=== PATIENT | female | born 1950 | race Caucasian/White ===

== ENCOUNTER 2018-08-24 10:55 | Day surgery (SDC) | payer OTHER, SELFPAY ==
--- NOTE | 2018-08-23 16:45 | POEE_ITS ---
History of Present Illness Chief Complaint: Progressive decreased vision, right eye Narrative: The patient is a 67-year old female who has previously undergone laser vision correction with monovision, right eye near, left eye distance. She presented with complaints of progressive blurred vision in both eyes at both distance and near. On examination she was noted to have significant nuclear cataract of the right eye with best corrected vision of 20/70. The option of cataract surgery was offered to the patient and she wished to proceed. In addition, she desired to have her currently myopic right eye corrected for best distance vision. NOTE: The Chief Complaint, HPI, Past Medical History, Past Surgical History, Family History, Social History, Medications, and complete Ophthalmic Exam with detailed Assessment and Plan have already been documented in the patient's outpatient ophthalmic record and are not covered again in detail here. PFSH Nuclear sclerotic cataract of right eye (Acute) Myopia of right eye (Chronic) Medical History Nuclear sclerotic cataract of right eye (Acute) Myopia of right eye (Chronic) Social History Smoking/Tobacco Use Status: Never Social History Smoking/Tobacco Use Status: Never Meds Home Medications Medication Instructions Recorded Confirmed Type aspirin [Aspir-Low] 81 mg PO DAILY 08/20/18 08/20/18 History atorvastatin 10 mg PO DAILY 08/20/18 08/20/18 History coenzyme Q10 [CoQ-10] 400 mg PO DAILY 08/20/18 08/20/18 History flaxseed oil 1,000 mg PO DAILY 08/20/18 08/20/18 History hydrochlorothiazide 25 mg PO DAILY 08/20/18 08/20/18 History ibuprofen 4 tab PO TID PRN PRN 08/20/18 08/20/18 History nitroglycerin [Nitrostat] 0.4 mg SUBLINGUAL ONCE 08/20/18 08/20/18 History omega 7-eia-dhu-fish oil [Fish Oil] 1,000 mg PO DAILY 08/20/18 08/20/18 History omeprazole 20 mg PO BID 08/20/18 08/20/18 History Allergies Allergy/AdvReac Type Severity Reaction Status Date / Time Penicillins Allergy Verified 08/20/18 13:48 Sulfa (Sulfonamide Allergy Verified 08/20/18 13:48 Antibiotics) Exam OCULAR EXAM:: Most recent ocular examination revealed a best corrected vision of 20/70 in the right eye, 20/30 in the left eye. Pupils equal, round, and reactive without afferent pupillary defect. Intraocular pressure is 18 OD, 20 OS. Extraocular motility is normal. Slit-lamp examination reveals a 3+ nuclear cataract OD, 1+ nuclear cataract OS. Dilated funduscopic examination shows disc cupping of 0.35 OU with good color. The vessels and macula are normal OU as is the vitreous. 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 BRIGHTNESS ACUITY TESTING (BAT):: Brightness acuity testing of the right eye off is 20/70. Low is 20/200, medium and high is 20/400. Assessment and Plan (1) Nuclear sclerotic cataract of right eye: Current visit: No Status: Acute Assessment: Visually significant cataract, right eye. Plan: Cataract extraction with intraocular lens implantation, right eye (2) Myopia of right eye: Current visit: No Status: Chronic Assessment: Myopia of the right eye, status post laser vision correction, with monovision, right eye for near. Plan: Patient desires emmetropia following cataract surgery (3) S/P LASIK surgery of both eyes: Current visit: No Status: Chronic Assessment: Status post laser vision correction OU, monovision with right eye near, left eye distance Plan: Cataract surgery of the right eye with a target refraction of emmetropia per patient desires. Note: NOTE:: The details of the planned surgery, including the risks, indications, limitations,expectations,outcome and possible complications were explained to the patient. The patient understands the complications including, but not limited to: infection, hemorrhage, posterior dislocation of the lens or nuclear fragments which may require the intervention of a vitreoretinal surgeon, possible loss of the eye, or from anesthetic complications. The patient has been made aware of the option of not having surgery, that vision following surgery may not be equal to that prior to surgery, and that the planned surgery may not achieve the intended results. Following this discussion, which the patient appeared to understand, the patient wishes to proceed with cataract surgery with lens implantation of the affected eye to improve and maximize vision.
[2018-08-24] MEDS: Tropicam./Phenyleph. (1/2.5%) 5 ML BTL OD ×4 (11:23→12:56)
[2018-08-24] MEDS: Tetracaine 0.5% 4 ML BTL OD ×3 (11:23→11:37)
[2018-08-24 11:25] VITALS: BP 166/96; PULSE 85; RESP 16; TEMP 37.2; O2SAT 98
[2018-08-24] MEDS: Povidone-Iodine Ophth 30 ML BTL (12:57)
[2018-08-24] MEDS: Lidocaine 2% Jelly 6 ML SYR (13:00)
[2018-08-24] MEDS: Lidocaine 1% Pres-Free 5 ML VIAL (13:03)
[2018-08-24] MEDS: Balanced Salt Soln.-PLUS 500 ML BAG (13:03)
--- NOTE | 2018-08-24 13:37 | W.PM.DSUDISC ---
Discharge Plan Discharge Details Attending Provider: Dewey Martinez Primary Care Provider: Tri Arvizu Home Meds and New Rx's Prescriptions: No Action atorvastatin 10 mg Tablet 10 mg PO DAILY RF: 0 ibuprofen 200 mg Capsule 4 tab PO TID PRN PRNRF: 0 aspirin [Aspir-Low] 81 mg Tablet,Delayed Release (Dr/Ec) 81 mg PO DAILY RF: 0 flaxseed oil 1,000 mg Capsule 1,000 mg PO DAILY RF: 0 nitroglycerin [Nitrostat] 0.4 mg Tablet, Sublingual 0.4 mg SUBLINGUAL ONCE RF: 0 omeprazole 20 mg Capsule,Delayed Release(Dr/Ec) 20 mg PO BID RF: 0 hydrochlorothiazide 25 mg Tablet 25 mg PO DAILY RF: 0 coenzyme Q10 [CoQ-10] 100 mg Capsule 400 mg PO DAILY RF: 0 omega 5-nyd-qsr-fish oil [Fish Oil] 1,000 mg (120 mg-180 mg) Capsule 1,000 mg PO DAILY RF: 0 Discharge Instructions Stand Alone Forms: Post-op Topical Cataract, Gerald Escobar (DSU) DS: Diagnosis Discharge Diagnosis (1) Nuclear sclerotic cataract of right eye: Status: Resolved (2) Myopia of right eye: Status: Resolved (3) S/P LASIK surgery of both eyes: Status: Chronic (4) Status post cataract extraction and insertion of intraocular lens of right eye: Status: Acute
--- NOTE | 2018-08-24 13:40 | ROE_ITS ---
Date of service: 08/24/18 Time of Service: 13:38 Operative Note DATE OF PROCEDURE: 08/24/18 PRE-OP DIAGNOSIS: Cataract, right eye POST-OP DIAGNOSIS: same SURGEON: Dewey Martinez ANESTHESIA: MAC and local (sub-tenon's anesthetic infiltration) PATHOLOGY: none sent COMPLICATIONS: None Patient was transported to: same day Patient's condition: stable Implants: Zane and Zane [employer] / [employer] Tecnis [id number] Indications: Progressive decreased vision due to cataract, right eye Procedure Description: CATARACT SURGERY OPERATIVE REPORT PREOPERATIVE DIAGNOSIS: Dense nuclear cataract, right eye POSTOPERATIVE DIAGNOSIS: Same OPERATION: Cataract extraction using phacoemulsification with posterior chamber intraocular lens implant, right eye. 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 She chose monovision, with right eye near, left eye distance. She has now developed a significant nuclear cataract in the right eye. She desires cataract surgery in the right eye and attempt to improve and maximize her vision. She desires a postoperative refractive target of emmetropia. PROCEDURE: The correct surgical eye was identified and marked as the right eye and the pupil was dilated in the preoperative area using mydriatics and cycloplegics. The dilated pupil size was 7.5 mm. Oral sedation was administered in the form of an Imprimis MKO Melt (midazolam 3mg/ketamine 25mg/ ondansetron 2mg). The patient was brought to the operating room where cardiopulmonary monitoring was instituted and surgical time-out was performed, confirming the correct operative eye and IOL power. Topical anesthesia was administered and ophthalmic povidone-iodine 5% was instilled into the conjunctival fornices. Lidocaine gel was applied to the cornea and the gamaliel-ocular area was prepped with Betadine 10% solution and draped in the usual sterile fashion for intraocular surgery, including an aperture drape. A Tegaderm transparent film dressing was cut in half and used to cover the lashes and lid margins. Care was taken to sequester the lashes and lid margins under the Tegaderm dressing. A lid speculum was placed between the lids of the operative eye and the Fatimah-Opal operating microscope was maneuvered into position. Brenda scissors were then used to make a conjunctival buttonhole approximately 6mm posterior to the limbus in the inferonasal quadrant. Blunt dissection was carried out to expose bare sclera, and a blunt-tipped sub-tenon? s anesthesia cannula was introduced and passed posteriorly along the globe where non-preserved plain lidocaine was injected into posterior sub-Tenon?s space. A sideport knife was used to make a paracentesis port in the inferiortemporal position and the anterior chamber was filled with Healon GV. A 2.4mm keratome knife was used to create a half-thickness groove at the limbus and then to construct a three-plane near-clear corneal tunnel extending 2.0mm into clear cornea in the superiortemporal position. . A flap was raised on the anterior capsule and capsulorhexis forceps were used to complete a continuous curvilinear capsulorhexis of 5.0 mm. Balanced salt solution was then used to perform cortical cleaving hydrodissection and nuclear hydrodelineation until the lens could be freely rotated within the capsular bag. The lens nucleus was then disassembled and removed within the capsular bag and iris plane using phacoemulsification. Residual cortical material was removed using the 45-degree angled silicone I/A tip with 0.3mm port. The posterior capsule was carefully polished to remove as much residual lens epithelial cells as safely possible. The capsular bag was then inflated and the anterior chamber deepened with viscoelastic. The lens implant described above was inserted into the capsular bag using the LISA [place] Injector. A Kuglen hook was used to dial the IOL into position. Residual viscoelastic was then removed first from posterior to the IOL, then from the anterior chamber using the I/A handpiece. The lens implant was noted to center nicely within the capsular bag. The incisions were stromally hydrated , and the anterior chamber was reformed using BSS. Then 0.4cc of moxifloxacin 1.5mg/ml were injected into the capsular bag and anterior chamber. The incisions were checked with a Weck spear and found to be secure. Several drops of ophthalmic povidone-iodine 5% were then applied to the eye followed by two drops of Imprimis combination moxifloxacin/dexamethasone solution. The drapes were removed and a clear plastic protective eye shield was placed over the eye. The patient was then returned to Same Day Surgery in stable condition.
[2018-08-24 13:55] VITALS: BP 129/74; PULSE 83; RESP 16; TEMP 37.7; O2SAT 95
== END 2018-08-24 14:03 | disposition home or self-care (01) ==
LOC: SUR 10:56
PROVIDERS: PCP Family Medicine; Visit Provider Ophthalmology
PROC: (CPT 66984; principal; 2018-08-24 14:00)
DX: H25.11 Age-related nuclear cataract, right eye (principal); K21.9 Gastro-esophageal reflux disease without esophagitis; I10 Essential (primary) hypertension
CPT/HCPCS: 66984; V2632

== ENCOUNTER 2021-09-14 02:04 | Outpatient (CLI) | payer OTHER, SELFPAY ==
[2021-09-14 10:23] LABS: Source Nasal/Nares
[2021-09-14 13:09] LABS: COVID-19 PCR Negative (Negative)
== END 2021-09-14 02:05 | disposition home or self-care (01) ==
PROVIDERS: PCP Family Medicine; Visit Provider Ophthalmology
DX: Z20.822 Contact with and (suspected) exposure to COVID-19 (principal); Z01.818 Encounter for other preprocedural examination
CPT/HCPCS: 87635

== ENCOUNTER 2021-09-17 09:39 | Day surgery (SDC) | payer OTHER, SELFPAY ==
[2021-09-17] MEDS: Tropicam./Phenyleph. (1/2.5%) 5 ML BTL OS ×3 (10:17→10:29)
[2021-09-17 10:22] VITALS: BP 151/97; PULSE 66; RESP 16; TEMP 36.4; O2SAT 98
--- NOTE | 2021-09-17 10:34 | ANES.PREOP_ITS ---
General Info Date of Service Date Performed: 09/17/21 Height: 5 ft 6 in Weight: 91.9 kg Body Mass Index (BMI): 32.7 Surgical Procedure: Operation Date: 09/17/21 12:40 Proposed Procedures Side Surgeon p Cataract Extraction with IOL Implant Left Dewey Martinez MD Meds Allergies and Home Medications Allergies Allergy/AdvReac Type Severity Reaction Status Date / Time Penicillins Allergy Intermediate Hives Unverified 09/17/21 10:06 [id number] Reductase Allergy Intermediate Nausea Unverified 09/17/21 10:06 Inhibitor Sulfa (Sulfonamide Allergy Intermediate Hives Unverified 09/17/21 10:06 Antibiotics) DEBBIE Inhibitors AdvReac Mild Other (See Unverified 09/17/21 10:06 Comment) metoprolol AdvReac Mild Other (See Unverified 09/17/21 10:06 Comment) Home Medication Medication Instructions Recorded aspirin 81 mg PO DAILY 09/12/21 atorvastatin 40 mg PO DAILY 09/12/21 calcium 500 mg PO DAILY 09/12/21 cholecalciferol (vitamin D3) 25 mcg PO DAILY 09/12/21 [Vitamin D3] coenzyme Q10 [CoQ-10] 400 mg PO DAILY 09/12/21 flaxseed oil 1,000 mg PO DAILY 09/12/21 ibuprofen 800 mg PO TID PRN 09/12/21 metoprolol succinate 25 mg PO DAILY 09/12/21 multivitamin 1 tab PO DAILY 09/12/21 nitroglycerin [Nitrostat] 0.4 mg SUBLINGUAL DIRECTED 09/12/21 omega-3 fatty acids [Fish Oil] 1 cap PO DAILY 09/12/21 omeprazole 20 mg PO DAILY 09/12/21 Current Visit Medications: Current Medications Generic Name Dose Route Start Last Admin Trade Name Freq PRN Reason Stop Dose Admin Acetaminophen 1,000 mg 09/17/21 06:00 Acetaminophen 500 Mg Tab PO Q4H PRN PRN Miscellaneous Medication 0 ml 09/17/21 06:00 Prednisolone 1%, Moxifloxacin 0.5%, Nepafenac 0.1% 5ml Btl OS DIRECTED WISAM Miscellaneous Medication 0 ml 09/17/21 06:00 09/17/21 10:29 Tropicam./Phenyleph. (1/2.5%) 5 Ml Btl OS 1 drp DIRECTED WISAM Administration Tetracaine HCl 0 ml 09/17/21 06:00 Tetracaine 0.5% 4 Ml Btl OS DIRECTED WISAM PFSH Active Problems Active Problems: Problem Status Onset Code S/P LASIK surgery of both eyes Z98.890 Status post cataract extraction and insertion of intraocular lens of right eye 08/24/18 Z98.41, Z96.1 Medical History Medical History Acquired hammertoe Acute non-ST elevation myocardial infarction (NSTEMI) 02/17/20 & [place] [facility] [place] Atherosclerotic heart disease of kaw coronary artery without angina pectoris Complication of immunization Coronary arteriosclerosis GERD (gastroesophageal reflux disease) Greater trochanteric pain syndrome Hypertensive disorder Iliotibial band syndrome Lack of energy Localized edema Lumbosacral radiculopathy Lymphedema Myopia of right eye Nuclear sclerotic cataract of right eye Osteopenia Pain in lower limb Pain in right foot Pain of right hip joint Palpitations Rosacea Urinary incontinence Surgical History Surgical History Hx of cardiac catheterization Hx of colonoscopy Hx of eye surgery Hx of tubal ligation Tobacco Smoking/Tobacco Use Status: Never Alcohol Alcohol Intake: never Substance Use Substance use: Never Substance use type: does not use Vital Signs and Lab Results Vital Signs Most Recent Vital Signs in EMR: Most Recent Vital Signs Temp Pulse Resp BP Pulse Ox 36.4 C L 66 16 151/97 H 98 09/17/21 10:22 09/17/21 10:22 09/17/21 10:22 09/17/21 10:22 09/17/21 10:22 Lab Results Blood Type / Crossmatch: No Data to Display Complete Blood Count: No Data to Display Complete Metabolic Panel: No Data to Display Liver Function Panel: No Data to Display Coagulation Panel: No Data to Display Cardiac Panel: No Data to Display Arterial Blood Gas: No Data to Display Venous Blood Gas: No Data to Display Pancreas Panel: No Data to Display Thyroid Panel: No Data to Display Infectious Disease: Coronavirus (COVID-19)(PCR) Negative (Negative) 09/14/21 08:48 09/14/21 Coronavirus 2019 Source Nasal/Nares 09/14/21 08:48 09/14/21 Blood Cultures: No Data to Display Toxicology Panel: No Data to Display Imaging and Studies Imaging and Studies Study information below may be from another EMR and interpreted by another provider. Please see original notes in EMR for more complete details. Echocardiogram Summary: : [facility] [place]: EF 74%, Normal Valves Cardiac Catheterization Summary: 02/17/2020: [facility] [place]: Normal coronaries Anesthesia Assessment and Plan Anesthesia History Personal History: No History of Anesthesia Complications Family History: No Family History of Anesthesia Complications Exercise Tolerance Exercise Tolerance: Metabolic Equivalents>4 Pertinent Negatives Pertinent Negatives: No Symptoms of GERD, No Major Cardiovascular Symptoms or Complaints, No Major Pulmonary Symptoms or Complaints and No History of CVA/TIA Cardiac & Pulmonary Exam Cardiac Exam: Normal S1/S2 Heart Sounds Pulmonary Exam: Clear Bilateral Breath Sounds Implantable Cardiac Device Does patient have a Pacemaker or an ICD?: No Airway Exam Known Difficult Airway: No Mallampati Class: 3 Mouth Opening: Narrow (< 3cm) Thyromental Distance: Greater than 3 cm Neck Range of Motion: Full ROM Neck Circumference: Normal Teeth Condition: Generalized Poor Dentition and Removable Dentures/Plates Lower ASA Classification ASA Score: ASA 3 Emergency Case?: No NPO Status NPO Status: NPO Clears >2 hours, Solids >8 hours Anesthesia Plan Resuscitation Status: Full Code Anesthesia Technique: General Anesthesia Airway Planned: Endotracheal Tube Monitors Used: Standard Monitors
[2021-09-17 11:07] VITALS: BMI 32.7
[2021-09-17] MEDS: Tetracaine 0.5% 4 ML BTL OS (11:20)
[2021-09-17] MEDS: Duovisc Viscoelastic System EACH 1 EACH (11:21)
[2021-09-17] MEDS: Balanced Salt Soln.-PLUS 500 ML BAG (11:21)
[2021-09-17] MEDS: Lidocaine 2% Jelly 6 ML SYR (11:22)
[2021-09-17] MEDS: Povidone-Iodine Ophth 30 ML BTL (11:23)
[2021-09-17 11:37] VITALS: BP 147/61; PULSE 56; RESP 16; TEMP 36.3; O2SAT 98
--- NOTE | 2021-09-17 11:39 | W.PM.DSUDISC ---
Discharge Plan Disposition Patient Disposition: HOME Condition: Good Discharge Details Attending Provider: Dewey Martinez Primary Care Provider: Celine Castaneda Home Meds and New Rx's Prescriptions: No Action multivitamin Tablet 1 tab PO DAILY RF: 0 atorvastatin 40 mg Tablet 40 mg PO DAILY RF: 0 calcium 500 mg Tablet 500 mg PO DAILY RF: 0 aspirin 81 mg Capsule,Delayed Release(Dr/Ec) 81 mg PO DAILY RF: 0 flaxseed oil 1,000 mg Capsule 1,000 mg PO DAILY RF: 0 ibuprofen 200 mg Tablet 800 mg PO TID PRNRF: 0 nitroglycerin [Nitrostat] 0.4 mg Tablet, Sublingual 0.4 mg sublingual DIRECTED RF: 0 omeprazole 20 mg Capsule,Delayed Release(Dr/Ec) 20 mg PO DAILY RF: 0 metoprolol succinate 25 mg Tablet Extended Release 24 Hr 25 mg PO DAILY RF: 0 cholecalciferol (vitamin D3) [Vitamin D3] 25 mcg (1,000 unit) Capsule 25 mcg PO DAILY RF: 0 coenzyme Q10 [CoQ-10] 100 mg Capsule 400 mg PO DAILY RF: 0 Fish Oil Capsule 1 cap PO DAILY RF: 0 Discharge Instructions Stand Alone Forms: Post-op Topical Cataract, Gerald Escobar (DSU) Discharge Orders Discharge Orders: Discharge Order (Routine); Ordered 09/17/21 Ordered By: Dewey Martinez DS: Diagnosis Discharge Diagnosis (1) Cortical cataract of left eye: Status: Resolved (2) Nuclear sclerotic cataract of left eye: Status: Resolved
--- NOTE | 2021-09-17 11:40 | W.PM.OP ---
Date of service: 09/17/21 Time of Service: 11:40 Operative Note Operative Note DATE OF PROCEDURE: 09/17/21 PRE-OP DIAGNOSIS: Nuclear/cortical cataract, left eye Status post myopic LASIK, left eye POST-OP DIAGNOSIS: same PROCEDURE: Cataract extraction using phacoemulsification with intraocular lens implant, left eye SURGEON: Dewey Martinez ANESTHESIA TYPE: Local By Surgeon and MAC Refer to Anesthesia Record PATHOLOGY: none sent COMPLICATIONS: None Patient was transported to: same day Patient's condition: stable Implants: Zane and Zane / [employer] Opt[employer] Tecnis [id number] Indications: Progressive decreased vision due to cataract, left eye Procedure Description: CATARACT SURGERY OPERATIVE REPORT PREOPERATIVE DIAGNOSIS: 1. Nuclear/cortical cataract, left eye Status post myopic LASIK, left eye POSTOPERATIVE DIAGNOSIS: Same OPERATION: 1. Cataract extraction using phacoemulsification with posterior chamber intraocular lens implant, left eye. IOL: IOL Solar Panel Installer/Model: Zane & Zane / LISA Tecnis ZCB00 IOL Power: + 20.5 diopters IOL Serial Number: [id number] Optic Diameter: 6.0 mm Haptic/Overall Diameter: 13.0 mm PHACO INFO: [employer]urion Vision System with OZil and Active Fluidics Cumulative Dispersed Energy (CDE): 5.67 seconds SURGEON: Dewey Martinez MD, RADHA ANESTHESIA: Monitored A [facility] (MAC), with local sub-tenon's anesthetic infiltration COMPLICATIONS: None SPECIMENS: None INDICATIONS FOR PROCEDURE: The patient is a 70-year-old lady who has previously undergone myopic LASIK for monovision, right eye near left eye distance. She has previously undergone cataract surgery in the right eye with IOL calculated for distance vision. She has now developed a symptomatic nuclear and cortical cataract in the left eye and desires cataract surgery there as well. The option of cataract surgery was offered to the patient and she wished to proceed. PROCEDURE: The correct surgical eye was identified and marked as the left eye and the pupil was dilated in the preoperative area using mydriatics and cycloplegics. The dilated pupil size was 7.0 mm. Oral sedation was administered in the form of an Imprimis MKO Melt (midazolam 3mg/ketamine 25mg/ondansetron 2mg). The patient was brought to the operating room where cardiopulmonary monitoring was instituted and surgical time-out was performed, confirming the correct operative eye and IOL power. Topical anesthesia was administered and ophthalmic povidone-iodine 5% was instilled into the conjunctival fornices. Lidocaine gel was applied to the cornea and the gamaliel-ocular area was prepped with Betadine 10% solution and draped in the usual sterile fashion for intraocular surgery, including an aperture drape. A Tegaderm transparent film dressing was cut in half and used to cover the lashes and lid margins. Care was taken to sequester the lashes and lid margins under the Tegaderm dressing. A lid speculum was placed between the lids of the operative eye and the Fatimah-Opal operating microscope was maneuvered into position. Brenda scissors were then used to make a conjunctival buttonhole approximately 6mm posterior to the limbus in the inferonasal quadrant. Blunt dissection was carried out to expose bare sclera, and a blunt-tipped sub-tenon?s anesthesia cannula was introduced and passed posteriorly along the globe where non-preserved plain lidocaine was injected into posterior sub-Tenon?s space. A sideport knife was used to make a paracentesis port superiorly/superiortemporally. Intraocular phenylephrine/lidocaine was injected int the anterior chamber.. The anterior chamber was filled with viscoelastic. A 2.4mm keratome knife was used to create a half-thickness groove at the limbus and then to construct a three-plane near-clear corneal tunnel extending 2.0mm into clear cornea at the 3:00 position. A flap was raised on the anterior capsule and capsulorhexis forceps were used to complete a continuous curvilinear capsulorhexis of 5.0 mm. Balanced salt solution was then used to perform cortical cleaving hydrodissection and nuclear hydrodelineation until the lens could be freely rotated within the capsular bag. The lens nucleus was then disassembled and removed within the capsular bag and iris plane using phacoemulsification. Residual cortical material was removed using the 45-degree angled silicone I/A tip with 0.3mm port. The posterior capsule was carefully polished to remove as much residual lens epithelial cells as safely possible. The capsular bag was then inflated and the anterior chamber deepened with viscoelastic. The lens implant described above was inserted into the capsular bag using the LISA [place] Injector. A Kuglen hook was used to dial the IOL into position. Residual viscoelastic was then removed first from posterior to the IOL, then from the anterior chamber using the I/A handpiece. The lens implant was noted to center nicely within the capsular bag. The incisions were stromally hydrated, and the anterior chamber was reformed using BSS. Then 0.5cc of moxifloxacin 1.0mg/ml were injected into the capsular bag and anterior chamber. The incisions were checked with a Weck spear and found to be secure. Several drops of ophthalmic povidone-iodine 5% were then applied to the eye followed by two drops of Imprimis combination prednisolone/moxifloxacin/nepafenac solution. The drapes were removed and a clear plastic protective eye shield was placed over the eye. The patient was then returned to Same Day Surgery in stable condition.
--- NOTE | 2021-09-17 12:06 | W.ANESPOSTOP ---
Postoperative Evaluation Date, Time and Location Date Performed: 09/17/21 Time Performed: 11:40 Patient Location: Day Surgery Unit Vital Signs Most Recent Imported Vital Signs: Most Recent Vital Signs Temp Pulse Resp BP Pulse Ox 36.3 C L 56 L 16 147/61 H 98 09/17/21 11:37 09/17/21 11:37 09/17/21 11:37 09/17/21 11:37 09/17/21 11:37 Pain Score Most Recent Pain Score: Most Recent Pain Score Pain Level 0 09/17/21 11:37 Assessment Mental Status: Awake (Alert & Oriented to Patient Baseline) Airway and Respiratory Function: Patent airway with normal (patient baseline) respiratory exam Cardiovascular Function: Hemodynamically Stable Hydration Status: Adequately Hydrated Nausea & Vomiting: No Nausea or Vomiting Pain: Pt. Denies Any Pain Peripheral Nerve Block: Patient did not receive a nerve block
== END 2021-09-17 11:55 | disposition home or self-care (01) ==
PROVIDERS: PCP Physician Assistant; Visit Provider Ophthalmology
PROC: (CPT 66984; principal; 2021-09-17 12:30)
DX: H25.12 Age-related nuclear cataract, left eye (principal); I10 Essential (primary) hypertension; K21.9 Gastro-esophageal reflux disease without esophagitis
CPT/HCPCS: 66984; V2632